=== PATIENT | female | born 1990 | race Caucasian/White ===

== ENCOUNTER 2022-11-14 19:32 | Emergency (ER) | payer OTHER ==
[2022-11-15] MEDS ORDERED: LATU40TA PO (01:36)
[2022-11-15] MEDS ORDERED: BUPROPION HYDR150 M3 PO (01:37)
[2022-11-15] MEDS ORDERED: Synthroid,Levo50 MCG PO (01:37)
[2022-11-15] MEDS ORDERED: LIPITOR10 MG PO (01:37)
[2022-11-15] MEDS ORDERED: CELECOXIB200 M1 PO (01:37)
[2022-11-15] MEDS ORDERED: LYVISPAH10 M1 PO (01:38)
== END 2022-11-14 22:13 | disposition left against medical advice (07) ==
LOC: ED 19:32
DX: Z53.21 Procedure and treatment not carried out due to patient leaving prior to being seen by health care provider (principal)

== ENCOUNTER 2022-11-15 01:16 | Emergency (ER) | payer OTHER ==
[~2022-11-15] VITALS: Ht 167.6 cm; Wt 84.4 kg
[2022-11-15] MEDS ORDERED: LATU40TA PO (01:36)
[2022-11-15] MEDS ORDERED: BUPROPION HYDR150 M3 PO (01:37)
[2022-11-15] MEDS ORDERED: LIPITOR10 MG PO (01:37)
[2022-11-15] MEDS ORDERED: Synthroid,Levo50 MCG PO (01:37)
[2022-11-15] MEDS ORDERED: CELECOXIB200 M1 PO (01:37)
[2022-11-15] MEDS ORDERED: LYVISPAH10 M1 PO (01:38)
== END 2022-11-15 01:50 | disposition home or self-care (01) ==
LOC: ED 01:16
DX: Z32.02 Encounter for pregnancy test, result negative (principal); E03.9 Hypothyroidism, unspecified; E78.00 Pure hypercholesterolemia, unspecified; Z91.041 Radiographic dye allergy status

== ENCOUNTER 2023-03-19 23:06 | Emergency (ER) | payer BC ==
[~2023-03-19] VITALS: Ht 167.6 cm; Wt 72.6 kg
[~2023-03-19 23:06] MED LIST: BUPROPION HYDR150 M3 PO; CELECOXIB200 M1 PO; LATU40TA PO; LIPITOR10 MG PO; LYVISPAH10 M1 PO; Synthroid,Levo50 MCG PO
== END 2023-03-19 23:56 | disposition left against medical advice (07) ==
LOC: ED 23:06
DX: R11.10 Vomiting, unspecified (principal); R51.9 Headache, unspecified; Z91.041 Radiographic dye allergy status; Z53.21 Procedure and treatment not carried out due to patient leaving prior to being seen by health care provider